=== PATIENT | male | born 1975 | race Caucasian/White ===

== ENCOUNTER 2017-02-25 19:11 | Emergency (ER) | payer MEDICARE | END 2017-02-25 21:14 | disposition home or self-care (01) | LOC: ER1 19:11 | DX: S76.012A Strain of muscle, fascia and tendon of left hip, initial encounter (principal); W18.39XA Other fall on same level, initial encounter; Y92.830 Public park as the place of occurrence of the external cause | CPT/HCPCS: 73502; 96372; 99283; J1885 ==